=== PATIENT | female | born 1960 | race African-American/Black ===

== ENCOUNTER 2018-10-05 12:13 | Emergency (ER) | payer BC ==
[2018-10-05 12:51] VITALS: TEMP 97.8; BMI 33.6
--- NOTE | 2018-10-05 13:06 | PDOC ---
History of Present Illness - General Chief Complaint: Injury Stated Complaint: RT LEG,ANKLE PAIN Time Seen by Provider: 10/05/18 12:43 - History of Present Illness Initial Comments: 10/05/18 15:12 Chief complaint: Right leg injury History of present illness: Patient stepped on a small ball yesterday, twisting her foot and pulling the muscles in the back of the calf. Today she has pain with weightbearing and ambulation in the posterior calf, lateral right foot and ankle. She did not fall. There were no other injuries. Review of systems: Denies lightheadedness dizziness or vertigo, chest pain, shortness of breath, abdominal pain, nausea, vomiting, diarrhea, distal numbness tingling or weakness of the lower extremities. Remainder systems reviewed and found to be negative Past medical history: Reviewed and noncontributory Social/family history reviewed and noncontributory Physical exam: Alert and oriented well-developed well-nourished no acute distress cheerful and cooperative. Ambulating adequately, but with pain in the calf and foot Afebrile, vital signs stable Right lower extremity: The thigh and knee are normal. No visible or palpable trauma. There is mild tenderness of the muscles of the posterior calf, without swelling, edema, erythema, or warmth. There is mild swelling over the anterolateral ankle ligaments. There is mild point tenderness over the lateral malleolus and the fifth metatarsal base. No deformities are present. No erythema or warmth. Pulses are full. No sensory or motor deficits. Achilles is intact and strong. Impression: Calf muscle strain, rule out fracture of the distal fibula or fifth metatarsal Plan: X-rays of the foot and ankle are negative. Compression wrap was placed on the foot, ankle, and calf. Crutches for partial weightbearing. Rest ice and elevation. Recheck orthopedist if no improvement as directed. Adequately ambulatory upon discharge with to follow-up as directed, no severe pain. Past History - Past Medical History Allergies/Adverse Reactions: Allergies Allergy/AdvReac Type Severity Reaction Status Date / Time No Known Allergies Allergy Verified 10/05/18 12:14 Home Medications: Ambulatory Orders Acetaminophen [Tylenol -] 650 mg PO Q6H 10/05/18 Anemia: No Asthma: Yes Cancer: No Cardiac Disorders: No CVA: No COPD: No CHF: No Dementia: No Diabetes: No GI Disorders: No Disorders: No HTN: No Hypercholesterolemia: No Liver Disease: No Seizures: No Thyroid Disease: No - Suicide/Smoking/Psychosocial Hx Smoking History: Never smoked Have you smoked in the past 12 months: No Information on smoking cessation initiated: No Hx Alcohol Use: No Drug/Substance Use Hx: No Substance Use Type: None Hx Substance Use Treatment: No *Physical Exam - Vital Signs Last Vital Signs Temp Pulse Resp BP Pulse Ox 97.8 F 83 20 141/71 100 10/05/18 12:14 10/05/18 12:14 10/05/18 12:14 10/05/18 12:14 10/05/18 12:14 Moderate Sedation - Procedure Monitoring Vital Signs: Procedure Monitoring Vital Signs Temperature 97.8 F 10/05/18 12:14 Pulse Rate 83 10/05/18 12:14 Respiratory Rate 20 10/05/18 12:14 Blood Pressure 141/71 10/05/18 12:14 O2 Sat by Pulse Oximetry (%) 100 10/05/18 12:14 *DC/Admit/Observation/Transfer Diagnosis at time of Disposition: Sprain of right foot Qualifiers: Encounter type: initial encounter Qualified Code(s): S93.601A - Unspecified sprain of right foot, initial encounter - Discharge Dispostion Disposition: HOME Condition at time of disposition: Stable Decision to Admit order: No - Referrals Referrals: Catrachito White MD [Staff Physician] - 1 week - Patient Instructions Printed Discharge Instructions: DI for Calf Muscle Strain, How to Apply an Nirav Wrap, DI for Foot Sprain Additional Instructions: Rest, elevate, ice, Tylenol. Compression using Nirav bandages as directed. Remove periodically and reapply - Post Discharge Activity Forms/Work/School Notes: Back to Work
[2018-10-05 14:09] VITALS: BP 125/69; PULSE 84
== END 2018-10-05 14:17 | disposition home or self-care (01) ==
LOC: FER 12:13
DX: S93.601A Unspecified sprain of right foot, initial encounter (principal); W18.01XA Striking against sports equipment with subsequent fall, initial encounter; Y93.89 Activity, other specified; Y92.89 Other specified places as the place of occurrence of the external cause
CPT/HCPCS: 73610-TC-RT-FY; 73630-TC-RT-FY; 99282-25

== ENCOUNTER 2018-10-11 09:25 | Day surgery (SDC) | payer BC ==
[2018-09-24 18:13] VITALS: BMI 34.0
[2018-10-11] MEDS ORDERED: oxyCODONE HCL 5 MG TABLET PO PRN (10:38)
[2018-10-11] MEDS ORDERED: ONDANSETRON 4 MG/2 ML VIAL IVPUSH PRN (10:38)
[2018-10-11] MEDS ORDERED: LACTATED RINGERS SOLUTION 1,000 ML IV SCH (10:45)
[2018-10-11] MEDS ORDERED: MIDAZOLAM HCL 2 MG/2 ML SINGLE DOSE VIAL ONE ×2 (11:26→12:05)
[2018-10-11] MEDS ORDERED: ROPIVACAINE HCL 0.5% 30ML VIAL ONE (11:27)
[2018-10-11] MEDS ORDERED: PROPOFOL 20 ML ONE ×5 (12:06→13:33)
[2018-10-11] MEDS ORDERED: ceFAZolin SODIUM 1 GM VIAL ONE (12:06)
[2018-10-11] MEDS ORDERED: LIDOCAINE HCL/PF 2% SDV 5ML VIAL ONE (12:07)
--- NOTE | 2018-10-11 12:07 | PN ---
Progress Note (short form) - Note Progress Note: 58F s/p LEFT shoulder open Elan procedure, Neer Decompression, & rotator cuff repair POD #0. -Pain control: Meloxicam & oxycodone PRN. -Incentive spirometry. -No chemical DVT PPx. -LUE sling. -No L shoulder ROM. -Daily L elbow, wrist & hand ROM. -Keep dressing clean & dry. -f/u in [facility] [place] Office on Sunday10/18/2018; call for appointment; . Roni Siddiqui MD (Orthopaedic Surgery).
[2018-10-11] MEDS ORDERED: DEXAMETHASONE SOD PHOSPHATE 4 MG/1 ML VIAL ONE (12:23)
[2018-10-11] MEDS ORDERED: DESFLURANE GAS 240 ML BOTTLE IH ONE (13:26)
--- NOTE | 2018-10-11 13:47 | OP ---
Operative Note - Note: Operative Date: 10/11/18 Pre-Operative Diagnosis: Left shoulder impingement syndrome. Left rotator cuff tear Operation: Left shoulder open: 1. Elan procedure. 2. Neer decompression. 3. Rotator cuff repair Findings: Partial thickness bursal sided rotator cuff tear Post-Operative Diagnosis: Same as Pre-op Surgeon: Roni Siddiqui Liquid Sugar Fortifier: Noam Siddiqui Anesthesiologist/JAVA INTEGRATION DEVELOPER: Tammy Stewart Anesthesia: General Specimens Removed: Bone, soft tissue Estimated Blood Loss (mls): 25 Fluid Volume Replaced (mls): 600 Operative Report Dictated: Yes
[2018-10-11] MEDS ORDERED: ACETAMINOPHEN 325 MG TABLET (FP) ONE (14:49)
[2018-10-11] MEDS ORDERED: ACETAMINOPHEN 325 MG TABLET (FP) PO ONE ×2 (14:50→18:36)
[2018-10-11 15:36] VITALS: TEMP 97.7
[2018-10-11 17:05] VITALS: BP 132/75; PULSE 88
--- NOTE | 2018-10-12 08:21 | OP ---
Date of Operation: 10/11/2018 Surgeon: Roni Siddiqui MD Pouch Maker: Noam Siddiqui MD Pre-Operative Diagnosis: 1. Impingement syndrome left shoulder. 2. Partial thickness rotator cuff tear. Post-Operative Diagnosis: 1. Impingement syndrome left shoulder, 2. Partial thickness rotator cuff tear. Surgical Procedure: Left shoulder open: 1. Distal claviculectomy (Elan procedure), 2. Coraco-acromial ligament release, 3. Acromioplasty (Neer Decompression), 4. Rotator cuff repair. Anaesthesia: Inter-scalene block; General, LMA. Position: Semi-beach chair. Incision: Oblique. Estimated Blood Loss: 25cc. Intravenous Fluid: 600cc. Specimens: None. Drains: None. Complications: None. Urine output: None. Bacteriology: None. Transfusions: None. Closure: #1 Vicryl. 3-0 Biosyn. Indications: The patient is a 58 year old female who was indicated for an open left shoulder distal claviculectomy (Elan procedure), coraco-acromial ligament release & Acromioplasty (Neer Decompression), and possible rotator cuff repair in order to ameliorate the symptoms associated with shoulder impingement syndrome and possible associated rotator cuff pathology. The patient was identified in the holding area by her armband. A long discussion was held with the patient (in the presence of her family) regarding the risks, benefits and alternatives of the above-named procedure. Risks include but are not limited to: pain, bleeding, infection, damage to surrounding structures (including nerves, blood vessels, skin, ligaments, tendons and bone), reflex sympathetic dystrophy (RSD), wound complications, failure of repair, need for further surgery, blood clots, myocardial infarction , pulmonary embolism, anesthesia complications, compartment syndrome, limb loss , limp, loss of function, cerebrovascular event, and . Benefits as mentioned above. Alternatives include no surgery. All questions were answered. The patient and her family understood and agreed to the procedure. Informed consent was obtained, witnessed and verified. The patients correct operative limb - the left upper extremity - was marked, and the anesthesia team administered an ipsilateral interscalene nerve block. The patient was then taken to the operating room after being seen by the anesthesia and nursing staff. Procedure: The patient was brought into the operating room, placed supine on the OR table and secured with a safety strap. Consent and the operative site was again verified with the patient and nursing and anaesthesia staff. Anaesthesia & antibiotics were then administered without complication. A time-out was done led by , the attending surgeon. The patient was positioned with all bony prominences well padded. A soft bump was placed under the inferior pole of the ipsilateral scapula. The operative limb was prepped in standard sterile fashion using betadine prep & scrub, wiped off with alcohol, DuraPrep applied, and then free draped. A time-out was repeated, and the case began. An incision was made in the lines of Enoch from the coracoid process to the lateral tip of the acromion. The deltoid was identified. Subcutaneous dissection was carried with electrocautery down to the level of the distal clavicle. With the distal clavicle exposed, sharp Hohmann retractors were placed around the inferior aspects of the anterior and posterior surfaces of the distal clavicle to elevate it. The acromioclavicular (AC) joint was clearly identified and the AC ligament was incised using a 15-blade. The distal 1cm of the clavicle was marked for excision. An oscillating saw was used to perform a distal clavicular osteotomy. A beveled angular cut was made to avoid leaving a sharp inferior corner to impinge on the rotator cuff below. The excision arthroplasty of the distal clavicle was completed and excised from its capsular attachments using a 15-blade. The soft tissues of the joint were saved for later closure. Throughout the case, hemostasis was assured using either monopolar or bipolar electrocautery. Next, the deltoid was elevated using an [facility] retractor, revealing the coraco-acromial (CA) ligament below. Peanut swabs were used to neatly dissect and identify the ligament. The CA ligament was incised longitudinally using a fresh 15-blade. The CA ligament was then fully released proximally and distally using Metzenbaum scissors. With the CA ligament fully decompressed, the subacromial space became easily accessible. This space was extremely tight. The AC joint capsule was neatly dissected to expose the distal acromion. A blunt Hohmann retractor was placed on the undersurface of the acromion, levering the humeral head down, protecting the underlying structures. Next, the oscillating saw was used to osteotomize the undersurface of the acromion with a beveled cut. A straight 1/2" osteotome was used to complete the cut and to free the excised segment of bone. The osteotomized acromioplasty bone fragment was then removed using a rongeur with a 15-blade to release any soft tissue attachments. The wound was copiously irrigated throughout the case using normal saline solution. Next, with finger palpation, an entire finger was delivered into the sub- acromial space and bursal adhesions were released using manual finger debridement. The shoulder was then taken through a full range of motion where a partial thickness, bursal-sided tear of the supraspinatus tendon was visualized. A single #1 vicryl suture was used in simple interrupted fashion to bridge and repair the rotator cuff derangement. At this point the wound was copiously irrigated. The AC joint capsule was closed primarily using #1 vicryl sutures. Again, copious irrigation was performed, hemostasis was assured and the wound was closed primarily using #1 sutures. The skin was closed using a 3-0 Biosyn subcuticular suture. A sterile, compressive dressing was applied. The sponge and needle counts were correct at the end of the case and I, the attending surgeon, was present and scrubbed throughout the case. The patient was then transferred to a hospital stretcher and to the recovery room in stable condition, having tolerated the procedure well. A sling was applied at the end of the case. MD STEVE Romero/[id number] MTDD
== END 2018-10-11 17:10 | disposition home or self-care (01) ==
LOC: FASU 09:25
PROVIDERS: ATTEND Orthopaedic Surgery Adult Reconstructive Orthopaedic Surgery
PROC: 0LQ20ZZ Repair Left Shoulder Tendon, Open Approach (ICD-10-PCS; 2018-10-11)
PROC: 0PBB0ZZ Excision of Left Clavicle, Open Approach (ICD-10-PCS; principal; 2018-10-11 13:03)
PROC: 0MN20ZZ Release Left Shoulder Bursa and Ligament, Open Approach (ICD-10-PCS; 2018-10-11 13:03)
DX: M75.41 Impingement syndrome of right shoulder (principal); M75.121 Complete rotator cuff tear or rupture of right shoulder, not specified as traumatic
CPT/HCPCS: 94760

== ENCOUNTER 2021-07-06 09:37 | Day surgery (SDC) | payer OTHER ==
[2021-07-04 12:36] VITALS: BMI 33.2
[2021-07-06] MEDS ORDERED: BENZOIN 118 ML SPRAY.PUMP TP ONE (10:31)
[2021-07-06] MEDS ORDERED: MIDAZOLAM HCL 2 MG/2 ML SINGLE DOSE VIAL ONE (12:06)
[2021-07-06] MEDS ORDERED: ROPIVACAINE HCL 0.5% 30ML VIAL ONE (12:06)
[2021-07-06] MEDS ORDERED: PROPOFOL 20 ML ONE ×4 (12:24→14:12)
[2021-07-06] MEDS ORDERED: ALBUTEROL SO4 HFA INHALER IH PRN (15:03)
[2021-07-06] MEDS ORDERED: oxyCODONE HCL 5 MG TABLET PO PRN (15:11)
[2021-07-06] MEDS ORDERED: ONDANSETRON 4 MG/2 ML VIAL IVPUSH PRN (15:11)
[2021-07-06] MEDS ORDERED: ACETAMINOPHEN 325 MG TABLET (FP) PO SCH (15:15)
[2021-07-06] MEDS ORDERED: LACTATED RINGERS SOLUTION 1,000 ML IV SCH (15:15)
[2021-07-06] MEDS ORDERED: ACETAMINOPHEN 325 MG TABLET (FP) ONE (15:23)
[2021-07-06] MEDS ORDERED: ONDANSETRON 4 MG/2 ML VIAL ONE (15:24)
[2021-07-06] MEDS ORDERED: PROMETHAZINE HCL 25 MG/1 ML VIAL ONE (15:46)
[2021-07-06] MEDS ORDERED: PROMETHAZINE HCL 25 MG/1 ML VIAL IVPUSH PRN (16:43)
[2021-07-06 17:27] VITALS: BP 144/85; PULSE 84; TEMP 98
[2021-07-06] MEDS ORDERED: ATORVASTATIN CA 20 MG TABLET (FP) PO SCH (22:00)
[2021-07-06] MEDS ORDERED: BUDESONIDE/FORMETEROL FUMARATE 80/4.5 mcg INHALER IH SCH (22:00)
[2021-07-10] MEDS ORDERED: ERGOCALCIFEROL (VIT D2) 50,000 UNIT (1.25 MG) CAPSULE PO SCH (10:00)
== END 2021-07-06 17:27 | disposition home or self-care (01) ==
LOC: FASU 09:37
PROVIDERS: ATTEND Orthopaedic Surgery Orthopaedic Surgery of the Spine
PROC: 0LQ10ZZ Repair Right Shoulder Tendon, Open Approach (ICD-10-PCS; 2021-07-06)
PROC: 0PB90ZZ Excision of Right Clavicle, Open Approach (ICD-10-PCS; principal; 2021-07-06 13:43)
PROC: 0MN10ZZ Release Right Shoulder Bursa and Ligament, Open Approach (ICD-10-PCS; 2021-07-06 13:43)
DX: M75.121 Complete rotator cuff tear or rupture of right shoulder, not specified as traumatic (principal); M75.41 Impingement syndrome of right shoulder
CPT/HCPCS: 94760